=== PATIENT | female | born 1990 | race Caucasian/White ===

== ENCOUNTER 2018-05-02 15:24 | Emergency (ER) | payer OTHER ==
[2018-05-02 16:39] LABS: BILIRUBIN,URINE NEGATIVE (NEG); CLARITY,URINE CLEAR; COLOR,URINE YELLOW; GLUCOSE,URINE NEGATIVE (NEG); NITRITE,URINE NEGATIVE (NEG); PH,URINE 7.5; PROTEIN,URINE NEGATIVE (NEG-TRACE); UROBILINOGEN,URINE 0.2 mg/dL (0.2 mg/dL)
[2018-05-02 16:51] LABS: ADD MAN DIFF? NO
[2018-05-02 16:53] LABS: BASO % 0 % (0-3); EOS % 0 % (0-3); HEMATOCRIT 41.1 % (36.0-47.0); HEMOGLOBIN 14.1 g/dL (12.0-15.5); LYMPH # 1.1 x10^3/uL (1.0-4.8); LYMPH % 15 % (24-48); MEAN CORPUSCULAR HEMOGLOBIN 32 pg (25-35); MEAN CORPUSCULAR HGB CONC 34 g/dL (31-37); MEAN CORPUSCULAR VOLUME 93 fL (79-100); MONO # 0.5 x10^3/uL (0.0-1.1); MONO % 6 % (0-9); NEUT # 5.9 x10^3uL (1.8-7.7); NEUT % 79 % (31-73); PLATELET COUNT 176 x10^3/uL (140-400); RED CELL DISTRIBUTION WIDTH 12.7 % (11.5-14.5); WHITE BLOOD COUNT 7.5 x10^3/uL (4.0-11.0)
[2018-05-02 16:56] LABS: BACTERIA,URINE FEW /HPF (0-FEW); RBC,URINE 0 /HPF (0-2); SQUAMOUS EPITHELIAL CELL,UR MOD /LPF
[2018-05-02 17:00] LABS: ANION GAP 8 (6-14); BLOOD UREA NITROGEN 10 mg/dL (7-20); BUN/CREATININE RATIO 14 (6-20); CALCIUM 8.6 mg/dL (8.5-10.1); CARBON DIOXIDE 26 mmol/L (21-32); CHLORIDE 103 mmol/L (98-107); CREATININE 0.7 mg/dL (0.6-1.0); GFR 98.3; GLUCOSE 83 mg/dL (70-99); POTASSIUM 3.8 mmol/L (3.5-5.1); SODIUM 137 mmol/L (136-145)
[2018-05-02 17:06] LABS: ALBUMIN 3.8 g/dL (3.4-5.0); ALBUMIN/GLOBULIN RATIO 1.1 (1.0-1.7); ALK PHOS 71 U/L (46-116); ALT (SGPT) 22 U/L (14-59); AST (SGOT) 16 U/L (15-37); TOTAL BILIRUBIN 0.7 mg/dL (0.2-1.0); TOTAL PROTEIN 7.3 g/dL (6.4-8.2)
[2018-05-02] MEDS: ONDANSETRON PF 4 MG/2 ML VIAL. IV (17:21)
[2018-05-02] MEDS: IV NORMAL SALINE 1000ML BAG 1,000 ML IV (17:21)
== END 2018-05-02 20:36 | disposition home or self-care (01) ==
LOC: ER 20:36
DX: O46.8X1 Other antepartum hemorrhage, first trimester (principal); R11.0 Nausea; R10.2 Pelvic and perineal pain; Z3A.08 8 weeks gestation of pregnancy
CPT/HCPCS: 36415; 76801; 80053; 81001; 85025; 96374; 99285-25; J2405; J7030

== ENCOUNTER → 2018-07-17 | Outpatient (CLI) | payer OTHER ==
[2018-05-02 20:20] VITALS: BP 100/48
[~2018-07-17] MED LIST: ONDA4TAB10 SL
--- NOTE | 2018-07-18 08:45 | KCIC ---
OB ultrasound greater than 14 weeks 07/17/2018 Clinical History: survey. Technique: A real-time ultrasound examination of the gravid uterus was performed. Multiple images were obtained. Findings: There is a single living IUP. The fetus is in a cephalic position. cardiac and somatic activity is seen. The heart rate is 143 beats per minutes. The maternal cervix is closed. It measures 4 cm in length. The placenta is posterior. No abnormality is seen. The amniotic fluid volume is within the lower limits of normal. The DANIEL measures 8.8 cm. Neither maternal ovary is visualized. The following measurements were obtained: BPD 4.3 tocm 19 weeks 0 days HC 16.41 cm 19weeks 1 days AC 13.52 cm 19weeks 0 days FL 2.89 cm 18 weeks 6 days The estimated gestational age by ultrasound is 19 weeks 0 days plus or minus a standard deviation of 10 days. The estimated date of delivery by ultrasound on today's study is 12/11/2018. Since the previous examination there has been appropriate interval growth. No abnormality is seen. Specifically the stomach, bladder, kidneys, 3 vessel cord and cord insertion, four-chamber heart, cisterna magna, cerebellum, nose/mouth, spine and extremities are well-visualized and within normal limits. Impression: Single living IUP with an estimated gestational age by ultrasound of 19 weeks 0 days +/- a standard deviation of 10 days. Since the previous examination has been appropriate interval growth. Electronically signed by: Kumar Arriola MD (07/18/2018 8:41 AM) [id number]
== END | disposition home or self-care (01) ==
LOC: KCIC US 10:50
PROVIDERS: ATTEND Obstetrics & Gynecology
DX: O09.90 Supervision of high risk pregnancy, unspecified, unspecified trimester (principal); O26.849 Uterine size-date discrepancy, unspecified trimester; Z3A.19 19 weeks gestation of pregnancy
CPT/HCPCS: 76805

== ENCOUNTER 2020-06-09 14:59 | Emergency (ER) | payer BC, OTHER ==
[~2020-06-09] VITALS: Ht 165.1 cm; Wt 74.0 kg
[~2020-06-09 14:59] MED LIST changes: +OSEL75CA PO
[2020-06-09 15:20] VITALS: BP 142/82
--- NOTE | 2020-06-09 15:25 | PHYS DOC ---
Past Medical History Past Medical History: No Pertinent History Past Surgical History: No Surgical History Smoking Status: Former Smoker Alcohol Use: None Drug Use: None General Adult EDM: Chief Complaint: DENTAL PROBLEM HPI: HPI: Patient is a 30 year old female patient presenting to the ED today complaining of mild intermittent right lower gum dental pain for 3 days. Patient denies any fever or trismus. She reports she is aware that she has bad teeth on the right lower gumline would like to see a dentist but none of the place that she can be seen has an opening. Review of Systems: Review of Systems: Constitutional: Denies fever or chills. [] Eyes: Denies change in visual acuity. [] HENT: Reports right lower gum dental pain denies nasal congestion or sore throat. [] Musculoskeletal: Denies back pain or joint pain. [] Integument: Denies rash. [] Neurologic: Denies headache, focal weakness or sensory changes. [] Psychiatric: Denies depression or anxiety. [] Heart Score: Risk Factors: Risk Factors: DM, Current or recent (<one month) smoker, HTN, HLP, family history of CAD, obesity. Risk Scores: Score 0 - 3: 2.5% MACE over next 6 weeks - Discharge Home Score 4 - 6: 20.3% MACE over next 6 weeks - Admit for Clinical Observation Score 7 - 10: 72.7% MACE over next 6 weeks - Early Invasive Strategies Allergies: Allergies: Allergies Coded Allergies Type Severity Reaction Last Updated Verified No Known Drug Allergies 06/09/20 No Physical Exam: PE: Constitutional: Well developed, well nourished, no acute distress, non-toxic appearance. [] HENT: Normocephalic, atraumatic, bilateral external ears normal, oropharynx moist, no oral exudates, nose normal. [] Tooth #30 is broken, dental decay noted on the tooth as well. No abscess. No gum redness noted. Skin: Warm, dry, no erythema, no rash. [] Back: No tenderness, no CVA tenderness. [] Extremities: No tenderness, no cyanosis, no clubbing, ROM intact, no edema. [] Neurologic: Alert and oriented X 3, normal motor function, normal sensory function, no focal deficits noted. [] Psychologic: Affect normal, judgement normal, mood normal. [] EKG: EKG: [] Radiology/Procedures: Radiology/Procedures: [] Course & Med Decision Making: Course & Med Decision Making Pertinent Labs and Imaging studies reviewed. (See chart for details) This is a 30-year-old female patient with dental pain and infection. Will be discharged with amoxicillin. Follow-up with primary care doctor or dentist in 1 to 2 weeks Elizabeth Disclaimer: Dragmica Disclaimer: This electronic medical record was generated, in whole or in part, using a voice recognition dictation system. Departure Departure Impression: Primary Impression: Dental infection Additional Impression: Pain, dental Disposition: HOME, SELF-CARE Condition: STABLE Referrals: NO PCP (PCP) Follow-up with your own dentist as soon as possible Patient Instructions: Dental Pain Additional Instructions: You were evaluated for dental pain and noted to have infection. Take the prescribed antibiotics as ordered until completed. Follow-up with your dentist as soon as possible Scripts Amoxicillin (AMOXICILLIN) 875 Mg Tablet 1 TAB PO BID, #20 TAB Prov: JESSICA BARRY APRN 06/09/20 Justicifation of Admission Dx: Justifications for Admission: Justification of Admission Dx: N/A JESSICA BARRY APRN Jun 09, 2020 15:25
[2020-06-09] MEDS ORDERED: AMOX875T PO (15:32)
== END 2020-06-09 16:07 | disposition home or self-care (01) ==
LOC: ER 14:59
DX: K04.7 Periapical abscess without sinus (principal); Z87.891 Personal history of nicotine dependence
CPT/HCPCS: 99283